=== PATIENT | female | born 1975 | race Asian ===

== ENCOUNTER 2018-12-03 20:19 | Emergency (ER) | payer OTHER ==
[~2018-12-03] VITALS: Ht 157.5 cm; Wt 59.0 kg
[2018-12-03 20:44] VITALS: Ht 157.5 cm; Wt 59.0 kg
[2018-12-03 22:18] VITALS: BP 117/82
== END 2018-12-03 22:18 | disposition home or self-care (01) ==
LOC: ED 20:19
DX: S93.402A Sprain of unspecified ligament of left ankle, initial encounter (principal); X50.1XXA Overexertion from prolonged static or awkward postures, initial encounter; Y93.89 Activity, other specified; Y92.89 Other specified places as the place of occurrence of the external cause; Y99.8 Other external cause status
CPT/HCPCS: J1885